=== PATIENT | male | born 1985 | race Caucasian/White ===

== ENCOUNTER 2020-09-05 19:58 | Emergency (ER) | payer OTHER ==
[2020-09-05 20:29] LABS: BASOPHILS % (AUTO) 0.3 %; EOSINOPHILS # (AUTO) 0.3 10^3/uL (0.0-0.7); EOSINOPHILS % (AUTO) 3.3 %; HGB - HEMOGLOBIN 17.6 g/dL (14.0-18.0); LYMPHOCYTES # (AUTO) 3.9 10^3/uL (1.5-3.5); LYMPHOCYTES % (AUTO) 44.2 %; MEAN CORPUSCULAR HEMOGLOBIN 31.6 pg (27.0-31.0); MEAN CORPUSCULAR HGB CONC 35.8 g/dL (32.0-36.0); MEAN CORPUSCULAR VOLUME 88.2 fL (80.0-94.0); MEAN PLATELET VOLUME 10.1 fL (7.4-11.4); MONOCYTES # (AUTO) 0.6 10^3/uL (0.0-1.0); NEUTROPHILS # (AUTO) 3.9 10^3/uL (1.5-6.6); NEUTROPHILS % (AUTO) 44.7 %; PLT - PLATELET COUNT 215 10^3/uL (130-450); RED BLOOD COUNT 5.57 10^6/uL (4.70-6.10); RED CELL DISTRIBUTION WIDTH 12.2 % (12.0-15.0); WHITE BLOOD COUNT 8.8 x10^3/uL (4.8-10.8)
[2020-09-05 20:39] LABS: ALBUMIN 4.9 g/dL (3.2-5.5); ALBUMIN/GLOBULIN RATIO 1.4 (1.0-2.2); BILIRUBIN,TOTAL 0.9 mg/dL (0.2-1.0); CALCIUM 10.2 mg/dL (8.5-10.3); CREATININE 1.2 mg/dL (0.6-1.2); TOTAL PROTEIN 8.3 g/dL (6.7-8.2)
--- NOTE | 2020-09-05 20:47 | XRAY Report ---
PROCEDURE: Chest 1 View X-Ray INDICATIONS: Chest Pain TECHNIQUE: One view of the chest was acquired. COMPARISON: None FINDINGS: Surgical changes and devices: None. Lungs and pleura: No pleural effusions or pneumothorax. Lungs are clear. Mediastinum: Mediastinal contours appear normal. Heart size is normal. Bones and chest wall: No suspicious bony lesions. Overlying soft tissues appear unremarkable. IMPRESSION: No acute process. Reviewed by: Orquidea Rivas MD on 09/05/2020 8:46 PM [facility] Approved by: Orquidea Rivas MD on 09/05/2020 8:46 PM [facility] Station ID: [id number]
--- NOTE | 2020-09-05 21:09 | ED Physician Documentation ---
History of Present Illness - Stated complaint Stated Complaint: HIGH BP, FEELS FAINT - Chief complaint Chief Complaint: Cardiac - History obtained from History obtained from: Patient - History of Present Illness Timing: How many weeks ago (1) Pain level now: 3 Improved by: nothing Worsened by: no exacerbating factors - Additonal information Additional information: c/o one week of mild generalized weakness, mild lightheadedness, intermittent pounding palpitations, and mild chest tightness. Saw PMD approximately 1 week ago, SBP found to be 140s, was advised to monitor his BP at home. He bought a BP cuff and has had consistent readings 150s-160s past few days and today had 175/105. His other symptoms have also persisted. Review of Systems Constitutional: denies: Fever, Chills, Sweats Eyes: denies: Loss of vision, Decreased vision Cardiac: reports: Chest pain / pressure, Palpitations (pounding but not rapid nor irregular). denies: Pedal edema Respiratory: reports: Reviewed and negative GI: reports: Reviewed and negative Neurologic: reports: Generalized weakness (mild, intermittent). denies: Focal weakness, Numbness, Headache PD PAST MEDICAL HISTORY - Past Medical History Past Medical History: No - Past Surgical History Past Surgical History: Yes - Present Medications Home Medications: Ambulatory Orders Medication Instructions Recorded Confirmed Aspirin Chewable [St Sea 81 PO DAILY 09/05/20 Aspirin] Multivitamin 1 tab DAILY 09/05/20 09/05/20 amLODIPine [Norvasc] 5 mg PO DAILY #20 tablet 09/05/20 - Allergies Allergies/Adverse Reactions: Allergies Allergy/AdvReac Type Severity Reaction Status Date / Time No Known Drug Allergies Allergy Verified 09/05/20 21:54 - Social History Does the pt smoke?: Yes Smoking Status: Current every day smoker Does the pt drink ETOH?: Yes ETOH Use: Beer Does the pt have substance abuse?: No - POLST Patient has POLST: No PD ED PE NORMAL - Vitals Vital signs reviewed: Yes - General General: Alert and oriented X 3, No acute distress, Well developed/nourished - HEENT HEENT: Moist mucous membranes - Cardiac Cardiac: RRR, No murmur, No gallop, No rub - Respiratory Respiratory: No respiratory distress, Clear bilaterally - Abdomen Abdomen: Soft, Non tender Results - Vitals Vitals: Vital Signs - 24 hr 09/05/20 09/05/20 09/05/20 20:00 20:12 20:26 Temperature 37.2 C Heart Rate 102 H 96 84 Respiratory 20 16 20 Rate Blood Pressure 177/109 H 208/100 H 174/102 H O2 Saturation 100 98 98 09/05/20 21:43 Temperature 37.3 C Heart Rate 80 Respiratory 18 Rate Blood Pressure 159/102 H O2 Saturation 98 Oxygen O2 Source Room air - EKG (time done) No standard instances Rate: Rate (enter#) (91) Rhythm: NSR [place]: Normal Intervals: Normal [place] QRS: LVH Ischemia: ST elevation c/w repol - Labs Labs: Laboratory Tests 09/05/20 09/05/20 09/05/20 20:15 20:15 20:15 WBC 8.8 RBC 5.57 Hgb 17.6 Hct 49.1 MCV 88.2 MCH 31.6 H MCHC 35.8 RDW 12.2 Plt Count 215 MPV 10.1 Neut # (Auto) 3.9 Lymph # (Auto) 3.9 H [place] # (Auto) 0.6 Eos # (Auto) 0.3 Baso # (Auto) 0.0 Absolute Nucleated RBC 0.00 Nucleated RBC % 0.0 Sodium 140 Potassium 3.3 L Chloride 99 L Carbon Dioxide 26 Anion Gap 15.0 H BUN 19 Creatinine 1.2 Estimated GFR (MDRD) 69 L Glucose 112 H Calcium 10.2 Total Bilirubin 0.9 AST 24 ALT 37 Alkaline Phosphatase 67 Troponin I High Sens 3.7 Total Protein 8.3 H Albumin 4.9 Globulin 3.4 Albumin/Globulin Ratio 1.4 Lipase 26 - Rads (name of study) chest xray Radiology: Prelim report reviewed, See rad report PD MEDICAL DECISION MAKING - ED course Complexity details: reviewed results, re-evaluated patient, considered differential, d/w patient Departure - Departure Disposition: 01 Home, Self Care Clinical Impression: Hypertension Qualifiers: Hypertension type: unspecified Qualified Code(s): I10 - Essential (primary) hypertension Chest pain Qualifiers: Chest pain type: unspecified Qualified Code(s): R07.9 - Chest pain, unspecified Condition: Good Instructions: ED Chest Pain Atypical Unkn Cause, ED Hypertension New Begin Tx Follow-Up: Jolanta Cates PA-C [Primary Care Provider] - Within 1 week Prescriptions: amLODIPine [Norvasc] 5 mg PO DAILY #20 tablet Discharge Date/Time: 09/05/20 21:55
[2020-09-05] MEDS ORDERED: amLODIPine 5 MG TABLET PO STA (21:29)
[2020-09-05 21:44] VITALS: BP 159/102
== END 2020-09-05 21:55 | disposition home or self-care (01) ==
LOC: ED 19:58
DX: I10 Essential (primary) hypertension (principal); R07.9 Chest pain, unspecified; F17.200 Nicotine dependence, unspecified, uncomplicated
CPT/HCPCS: 36415; 71045; 80053; 83690; 84484; 85025; 93005; 99284; A9270

== ENCOUNTER 2020-09-09 07:42 | Outpatient (CLI) | payer OTHER | END 2020-09-09 07:43 | disposition home or self-care (01) | LOC: DI 07:42 | PROVIDERS: ATTEND Physician Assistant Medical | DX: I51.7 Cardiomegaly (principal) | CPT/HCPCS: 93306 ==

== ENCOUNTER 2020-09-15 08:00 | Outpatient (CLI) | payer OTHER ==
--- NOTE | 2020-09-15 10:58 | CARDIAC PROCEDURE NOTE ---
DATE OF SERVICE: 09/15/2020 Physician: Conchis Carias MD, [facility] INDICATION: Dyspnea, dizziness, significant family history of sudden cardiac . CARDIAC RISK FACTORS: Male gender, hypertension poorly controlled, smoker of 1 pack a day, family history of heart disease (sudden cardiac ). DESCRIPTION OF PROCEDURE: After signing informed consent, the patient underwent a Moody-protocol treadmill stress test. No cardiac imaging was ordered with this test. RESTING HEART RATE: 84. PEAK HEART RATE: 179 (97% predicted maximum heart rate for age). RESTING BLOOD PRESSURE: 170/93. PEAK BLOOD PRESSURE: 232/92. The patient exercised for 10.5 minutes on a Moody-protocol treadmill stress test. He achieved a peak heart rate of 179 (97% PMHR) and 12.64 METs. The patient had mild to moderate shortness of breath at peak, no chest pain and rated his perceived exertion at 15/20 on the Yossi scale at peak. Oxygen saturation was 95-98% on room air throughout the test. RESTING EKG: Normal sinus rhythm, poor R-wave progression, early repolarization. EKG AT PEAK: Right axis deviation develops, no new ST segment or T-wave changes develop. SUMMARY: 1. Abnormal resting EKG. 2. Fair to good exercise tolerance. 3. No ischemic changes develop by EKG criteria. 4. No cardiac imaging was ordered with this test. IMPRESSION: Normal stress test. RECOMMENDATIONS: 1. Better BP control. 2. Pulmonary evaluation is advised, given the symptom of dyspnea and with right axis deviation that develops during exercise, on EKG. cc: Jolanta Cates PA-C TD: 09/15/2020 10:50 [facility]
== END 2020-09-15 08:01 | disposition home or self-care (01) ==
LOC: DI 08:00
PROVIDERS: ATTEND Physician Assistant Medical
DX: R42 Dizziness and giddiness (principal); R06.00 Dyspnea, unspecified; Z82.49 Family history of ischemic heart disease and other diseases of the circulatory system; R94.31 Abnormal electrocardiogram [ECG] [EKG]

== ENCOUNTER 2020-11-11 16:04 | Outpatient (CLI) | payer OTHER ==
[2020-11-11 16:42] VITALS: BP 131/84
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
== END 2020-11-11 16:05 | disposition home or self-care (01) ==
LOC: SC 16:04
PROVIDERS: ATTEND Nurse Practitioner Family
DX: R06.83 Snoring (principal); G47.8 Other sleep disorders; G47.10 Hypersomnia, unspecified; E66.9 Obesity, unspecified; Z68.32 Body mass index [BMI] 32.0-32.9, adult
CPT/HCPCS: 99203; 99212

== ENCOUNTER 2020-12-23 09:54 | Outpatient (CLI) | payer OTHER | END 2020-12-23 09:55 | disposition home or self-care (01) | LOC: SC 09:54 | PROVIDERS: ATTEND Nurse Practitioner Family | DX: G47.33 Obstructive sleep apnea (adult) (pediatric) (principal); R09.02 Hypoxemia; E66.9 Obesity, unspecified; Z68.32 Body mass index [BMI] 32.0-32.9, adult | CPT/HCPCS: 95806 ==

== ENCOUNTER 2021-01-12 16:41 | Outpatient (CLI) | payer OTHER ==
--- NOTE | 2021-01-12 17:01 | SLEEP CARE CONSULTATION ---
Information from patient questionnaire entered by Milli Kunz. I have reviewed and concur with the information entered by Milli Kunz. This document represents the service I personally performed and the decisions made by me, Nessa Schumacher ARNP. History of Present Illness Service Date and Time: 01/12/2021 164 Initial [place] Sleepiness Scale score: 13 (in 2020) Current [place] Sleepiness Scale score: 18 Additional HPI information: IRAM MORFIN returns for follow up and results of the recently performed home sleep study. I explained the pathophysiology behind obstructive sleep apnea. We then spent quite a bit of time discussing different treatment options. For mild obstructive sleep apnea, surgery and oral appliance are alternatives to nasal CPAP therapy but in moderate or severe cases, nasal CPAP is the most effective and reliable treatment. Because apnea is primarily in supine position, then positional management therapy could be effective. Methods discussed such as positioning with pillows, using a T-shirt with tennis balls in the back, and shown commercial products that have a pillow format on back to prevent supine sleep. I reviewed the impact of weight changes on sleep apnea and strongly recommended losing weight. After some discussion, the patient opted to go with the nasal CPAP therapy. Nasal autoCPAP set at 4-15 cmH20 will be ordered with rationale explained. A manual titration study will be ordered if unable to find optimal pressure with office adjustments. I explained how CPAP machine works with sample devices Respironics Dreamstation and ResEyesquad [id number] and what to expect when using the machine. Using CPAP every night in order to get used to it was emphasized. Patient advised to put CPAP mask on before getting into bed so as not to fall asleep without CPAP. To assist acclimation to CPAP use, it could also be used for a short time during day while reading or watching TV. The patient was instructed to call the CPAP supplier to discuss any mechanical problem that may occur. If the mask given is uncomfortable or is difficult to keep on through the night even with adjustment, contact the CPAP supplier as many will replace with another mask style if notified before 30 days. If snoring or perceives is not getting enough air or too much air from the machine, notify this office. [facility] patient education PAP tips reviewed and given to patient. Patient counseled not drink alcohol less than 4 hours before bedtime as it can increase snoring and apnea. Patient was cautioned about risks of drowsy driving until sleepiness symptoms resolve. Sleep Study - Results Type of Sleep Study: Home sleep study Prior sleep studies: No Polysomnography/Home Sleep Study results: Physician Impression: The quality of the study is good. The length of the study is adequate (> 240 minutes). Please also see the tabulated and graphic data. 1. Obstructive Sleep Apnea-Hypopnea (ICD-10 G47.33), mild, with an AHI of 10.8 /hr and brown SaO2 of 72%. During the study, the patient had 25 apneas (25 obstructive, 0 central, 0 mixed) and 46 hypopneas. The longest episode lasted 109.5 seconds. The respiratory events occurred more frequently during supine sleep (supine AHI was 16.8 and non-supine, 5.48). 2. Hypoxemia (ICD-10 R09.02), moderate, with the lowest oxygen saturation of 72 % and 124.7 minutes with SaO2 under 90%. Baseline oxygen saturation was normal (Average oxygen saturation was 90%). Allergies and Home Medications Home medication list reviewed: Yes (no changes) Review of Systems Review of systems same as previous: Yes (no changes) Physical Exam Heart Rate: 79 O2 Saturation: 98 Height: 6 ft 1 in Weight: 249 lb Body Mass Index: 32.8 BMI Classification: Obese Impression and Plan 1. Obstructive Sleep Apnea-Hypopnea Syndrome, mild, with lowest oxygen saturation of 72%. Obviously this is the cause of the patients symptoms of unrefreshed sleep, and excessive daytime sleepiness. Positive pressure therapy could benefit hypertension. As mentioned above, the patient will be started on nasal autoCPAP therapy with pressure set at 4-15 cmH2O. A manual titration study will be completed if unable to find optimal treatment pressure with office adj ustments. Compliance guidelines also reviewed. A copy of compliance guidelines will be given for reference at check out. Because the apnea is more severe supine, I instructed to avoid sleeping supine using pillow positioning until able to start CPAP use. * Nasal auto CPAP therapy, pressure at 4-15 cm H2O. * Attempt to lose weight. * Avoid alcohol consumption near bedtime. * Avoid supine sleep until using CPAP. * The patient is again cautioned about driving until sleepiness completely resolves. * Return one month after CPAP obtained. I will assess response to therapy and compliance at that time. Counseling Topics: Weight loss health impact Visit Type: In Office Time Spent with Patient (minutes): 16 Provider Statement: I spent 100% of the Face to Face Visit with the patient with greater than 50% spent counseling the patient and coordination of care.
== END 2021-01-12 16:42 | disposition home or self-care (01) ==
LOC: SC 16:41
PROVIDERS: ATTEND Nurse Practitioner Family
DX: G47.33 Obstructive sleep apnea (adult) (pediatric) (principal); E66.9 Obesity, unspecified; Z68.32 Body mass index [BMI] 32.0-32.9, adult
CPT/HCPCS: 99212

== ENCOUNTER 2021-03-21 16:57 | Outpatient (CLI) | payer OTHER ==
--- NOTE | 2021-03-21 17:23 | SLEEP CARE CONSULTATION ---
Information from patient questionnaire entered by Milli Kunz. I have reviewed and concur with the information entered by Milli Kunz. This document represents the service I personally performed and the decisions made by me, Nessa Schumacher ARNP. History of Present Illness Service Date and Time: 03/21/2021 165 Previous diagnosis: Mild, Obstructive Sleep Apnea-Hypopnea Syndrome AHI: 10.8 Reason for follow up: first compliance (Set up 01/24/21) Equipment obtained from: Other ([facility]; got initial supplies) Mask style: Full face Mask brand: Resmed ([id number]) Backup mask available: No (will keep old mask when replaced) Last cushion change: 1 month Prior sleep studies: No Year and Where: 2020 [facility] Type of Sleep Study: Home sleep study HPI additional information: IRAM MORFIN was diagnosed to have mild, AHI 10.8, obstructive sleep apnea- hypopnea syndrome and returned today for CPAP therapy first compliance follow- up. CPAP Compliance Data - Data Reviewed with Patient Average duration of nightly device use: 4 h 44 min Compliance rate %: 70 Current pressure setting (cmH2O): 4-15 (median 9.8, avg 14.0, max 14.6) Average residual AHI: 2.2 Subjective Missed days of use due to: reports: mask issues (broke headgear and had to get replaced) Patient concerns: denies: aerophagia, mask discomfort, air blowing in eyes, mask leak noise, condensation in mask/hose, nasal congestion, dry mouth, nose, throat, epistaxis, other Observed to snore while using device: No Current pressure setting perceived as: comfortable On therapy, patient: reports: sleeping better, awakening more refreshed, being more awake and alert during the day, more rested overall. denies: drowsiness while driving Initial [place] Sleepiness Scale score: 13 (in 2020) Current [place] Sleepiness Scale score: 9 Allergies and Home Medications Home medication list reviewed: Yes (no new meds) Review of Systems Review of systems same as previous: Yes (no changes) Physical Exam Heart Rate: 65 O2 Saturation: 98 Height: 6 ft 1 in Weight: 246 lb Body Mass Index: 32.4 BMI Classification: Obese Impression and Plan 1. Obstructive Sleep Apnea-Hypopnea Syndrome, mild, with fair treatment compliance and good apnea control. On CPAP therapy, the patient has better sleep quality and is more rested overall. 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 He woke up with the headgear broken and it took him a couple of days to be able to get a replacement so he did miss a couple of nights of CPAP use. We discussed keeping a backup set once his old is replaced. He voiced understanding and agreement with this plan of care. I will adjust his pressure to reflect those pressure used to 10 to 15 cmH2O. He is to let me know if this pressure change is uncomfortable and I will adjust it. Patient's apnea severity and rationale for treatment to reduce apnea, improve sleep quality and reduce cardiovascular and cerebrovascular events was reviewed. I also reviewed the benefit of consistent device use of CPAP for hypertension. * Change auto CPAP pressure to 10-15 cmH2O * Notify me if snoring with mask or feeling that the pressure is too much or too little * Attempt to lose weight * Call this office if any problems using CPAP * Return for follow up in 1-2 months, or sooner if concerns arise Counseling Topics: Spare mask, Weight loss health impact Visit Type: In Office Time Spent with Patient (minutes): 18 Provider Statement: I spent 100% of the Face to Face Visit with the patient with greater than 50% spent counseling the patient and coordination of care.
== END 2021-03-21 16:58 | disposition home or self-care (01) ==
LOC: SC 16:57
PROVIDERS: ATTEND Nurse Practitioner Family
DX: G47.33 Obstructive sleep apnea (adult) (pediatric) (principal); E66.9 Obesity, unspecified; Z68.32 Body mass index [BMI] 32.0-32.9, adult
CPT/HCPCS: 99212